=== PATIENT | male | born 1965 | race Caucasian/White ===

== ENCOUNTER 2017-12-17 21:25 | Emergency (ER) | payer SELFPAY ==
[~2017-12-17] VITALS: Ht 180.3 cm; Wt 68.0 kg
--- NOTE | 2017-12-17 21:48 | NUR ---
Pt previously registered under [id number]
[2017-12-17] MEDS ORDERED: LEVOFLOXACIN 750 MG TABLET PO ONE (23:45)
[2017-12-17] MEDS ORDERED: LEVOFLOXACIN 750 MG TABLET ONE (23:46)
--- NOTE | 2017-12-17 23:57 | NUR ---
Patient discharged to home in stable conditon. Written and verbal after care instructions given. Patient verbalizes understanding of instructions.
[2017-12-17 23:58] VITALS: BP 148/81
== END 2017-12-17 23:59 | disposition home or self-care (01) ==
LOC: ER 21:27
DX: S20.211A Contusion of right front wall of thorax, initial encounter (principal); F11.10 Opioid abuse, uncomplicated; B86 Scabies; F15.10 Other stimulant abuse, uncomplicated; Z59.0 Homelessness; X58.XXXA Exposure to other specified factors, initial encounter; Y93.89 Activity, other specified; Y92.89 Other specified places as the place of occurrence of the external cause; Y99.8 Other external cause status
CPT/HCPCS: 71045; A4663

== ENCOUNTER 2018-01-01 14:29 | Emergency (ER) | payer MEDICAID ==
[~2018-01-01] VITALS: Ht 180.3 cm; Wt 77.1 kg
--- NOTE | 2018-01-01 14:50 | NUR ---
Clean abrasion w/ NS. Dr Montiel at the bedside for MSE.
--- NOTE | 2018-01-01 15:35 | NUR ---
Patient discharged to home in stable conditon. Written and verbal after care instructions given. Patient verbalizes understanding of instructions.
[2018-01-01 15:36] VITALS: BP 125/68
== END 2018-01-01 15:35 | disposition home or self-care (01) ==
LOC: EDBD 14:31 → ER 14:31
DX: S60.410A Abrasion of right index finger, initial encounter (principal); F17.200 Nicotine dependence, unspecified, uncomplicated; F15.10 Other stimulant abuse, uncomplicated; F11.10 Opioid abuse, uncomplicated; Z59.0 Homelessness; W01.0XXA Fall on same level from slipping, tripping and stumbling without subsequent striking against object, initial encounter; Y93.89 Activity, other specified; Y92.89 Other specified places as the place of occurrence of the external cause; Y99.8 Other external cause status
CPT/HCPCS: 73130; A4663

== ENCOUNTER 2018-01-09 22:13 | Emergency (ER) | payer MEDICAID ==
[~2018-01-09] VITALS: Ht 180.3 cm; Wt 63.5 kg
[2018-01-09] MEDS ORDERED: ONDANSETRON 4 MG/2 ML VIAL IM ONE (22:30)
[2018-01-09] MEDS ORDERED: HYDROMORPHONE 1 MG/1 ML DISP.SYRIN IM ONE (22:30)
--- NOTE | 2018-01-09 22:34 | NUR ---
DR. SALCIDO AT BEDSIDE FOR MSE.
[2018-01-09] MEDS ORDERED: ONDANSETRON 4 MG/2 ML VIAL ONE (22:36)
[2018-01-09] MEDS ORDERED: HYDROMORPHONE 2 MG/1 ML DISP.SYRIN ONE (22:36)
[2018-01-09 23:51] VITALS: BP 151/89
--- NOTE | 2018-01-09 23:51 | NUR ---
Patient discharged to home in stable conditon. Written and verbal after care instructions given. Patient verbalizes understanding of instructions. PATIENT LEFT WITH STABLE GAIT.
== END 2018-01-09 23:54 | disposition home or self-care (01) ==
LOC: ER 22:15
DX: G43.909 Migraine, unspecified, not intractable, without status migrainosus (principal); F17.200 Nicotine dependence, unspecified, uncomplicated; Z59.0 Homelessness; F15.10 Other stimulant abuse, uncomplicated
CPT/HCPCS: 96372 ×2; 99283; J1170; J2405; A4663